=== PATIENT | male | born 1960 | race Caucasian/White ===

== ENCOUNTER 2024-01-28 16:59 | Emergency (ER) | payer MEDICARE, SELFPAY ==
[2024-01-28 17:15] VITALS: BP 159/99; PULSE 74; RESP 19; TEMP 36.9; O2SAT 99; BMI 40.6
--- NOTE | 2024-01-28 17:28 | EXP.UTC ---
Discharge Plan Disposition Patient Disposition: Home, Self-Care Condition: Good Prescriptions Prescriptions: New methylprednisolone 4 mg Tablets,Dose Pack 4 mg PO DIRECTED 6 Days Qty: 21 0RF Rx Instructions: Take 1 pack as directed for 6 days amoxicillin 875 mg tablet 875 mg PO Q12H Qty: 20 0RF benzonatate 100 mg capsule 100 mg PO TIDP PRN (Reason: Cough) Qty: 30 0RF No Action lisinopril 20 mg tablet 20 mg PO DAILY fluoxetine 40 mg capsule 40 mg PO DAILY Patient Comments: TAKE 1 CAPSULE BY MOUTH EVERY DAY simvastatin 40 mg tablet 40 mg PO DAILY Patient Comments: TAKE 1 TABLET BY MOUTH EVERY DAY furosemide 20 mg tablet 20 mg PO DAILY PRN (Reason: swelling ) Patient Comments: TAKE 1 TABLET BY MOUTH EVERY DAY NEEDED naproxen 500 mg tablet See Rx Instructions .ROUTE .COMPLEX Patient Comments: TAKE 1 TABLET BY MOUTH TWICE A DAY WITH MEALS NEEDED FOR PAIN Rx Instructions: TAKE 1 TABLET BY MOUTH TWICE A DAY WITH MEALS NEEDED FOR PAIN Referrals Follow up/Referrals: Provider,Referral, MD [Primary Care Provider] - See instructions Activity Restrictions/Add. Instructions Additional Instructions/Restrictions: Drink plenty of fluids. Take tylenol or ibuprofen for pain or fever. Take the medications as directed. Follow up with your regular doctor. GO TO THE ER FOR ANY WORSENING SYMPTOMS Clinical Impressions Clinical Impression: Acute bronchitis, Sinusitis Instructions Patient Instructions: DI for Sinusitis, DI for Acute Bronchitis Discharge ED Provider: Theo Shore [facility] – [place] HPI General Stated complaint: fatigue, chest congestion, sinus congestion Time Seen by Provider: 01/28/24 17:28 History of Present Illness Provider Complaint: He states that for the past 2 days he has had sinus and chest congestion. He has had a nonproductive cough also. Since yesterday he has had had worsening fatigue also. He denies any chest pain. Related Data Home Medications Medication Instructions Recorded Confirmed lisinopril 20 mg tablet 20 mg PO DAILY 03/26/20 01/28/24 fluoxetine 40 mg capsule 40 mg PO DAILY 01/28/24 01/28/24 furosemide 20 mg tablet 20 mg PO DAILY PRN swelling 01/28/24 01/28/24 naproxen 500 mg tablet See Rx Instructions .Route .COMPLEX 01/28/24 01/28/24 simvastatin 40 mg tablet 40 mg PO DAILY 01/28/24 01/28/24 Previous Rx's Medication Instructions Recorded amoxicillin 875 mg tablet 875 mg PO Q12H #20 tabs 01/28/24 benzonatate 100 mg capsule 100 mg PO TIDP PRN Cough #30 caps 01/28/24 methylprednisolone 4 mg tablets in 4 mg PO DIRECTED 6 days #21 tabs 01/28/24 a dose pack Allergies Allergy/AdvReac Type Severity Reaction Status Date / Time No Known Allergies Allergy Verified 01/28/24 17:36 [facility] Disclaimer: The information contained in this section may have been updated after the patient was seen, as this information can be updated by other users. Social History Smoking Status: Never smoker alcohol intake: never substance use type: denies use current occupational status: employed Travel in the last 8 weeks: None household members: family housing: house ROS Obtained: Yes All systems reviewed & no additional complaints except as documented Constitutional Constitutional: Reports poor appetite Eyes Eyes: Reports system reviewed and no additional complaints, except as documented ENT Ears, Nose, Mouth, and Throat: Reports as per HPI Cardiovascular Cardiovascular: Reports system reviewed and no additional complaints, except as documented and Denies chest pain Respiratory Respiratory: Denies shortness of breath, Denies chest congestion, Reports cough, Denies stridor and Denies wheezing Gastrointestinal Gastrointestingal: Reports system reviewed and no additional complaints, except as documented; Denies abdominal pain, diarrhea or vomiting Musculoskeletal Musculoskeletal: Reports system reviewed and no additional complaints, except as documented and Denies arthralgias Integumentary/Breasts Skin/Breast: Reports system reviewed and no additional complaints, except as documented and Denies rash Neurologic Neurologic: Denies paresthesias Allergic/Immunologic Allergic/Immunologic: Denies wheezing Physical Exam General General appearance: alert and in no apparent distress Eye Eye exam: Present normal appearance, PERRL and EOMI ENT ENT exam: Present mucous membranes moist and normal external ear exam Expanded ENT Exam External ear exam: Present normal external inspection TM/Canal exam: Bilateral TM: erythema and bulging Nose exam: Absent sinus tenderness Nasal speculum exam: Bilateral: normal Mouth exam: Present normal external inspection; Absent drooling Teeth exam: Present normal inspection Throat exam: Present tonsillar erythema and tonsillomegaly Neck Neck exam: Present normal inspection, full ROM and trachea midline; Absent tenderness, lymphadenopathy or thyromegaly Chest Chest inspection: Present normal inspection and symmetric chest wall rise; Absent tenderness or rash Respiratory Respiratory exam: Present normal lung sounds bilaterally; Absent respiratory distress, wheezes, stridor or accessory muscle use Cardiovascular Cardiovascular exam: Present regular rate, normal rhythm and normal heart sounds Abdominal Exam Abdominal exam: Present soft; Absent distention, tenderness, guarding, rebound or rigidity Extremities Exam Extremities exam: Present normal inspection, full ROM and normal capillary refill; Absent tenderness or calf tenderness Back Exam Back exam: Present normal inspection and full ROM; Absent tenderness Neurological Exam Neurological exam: Present alert and oriented X3 Psychiatric Psychiatric exam: Present normal affect and normal mood Skin Skin exam: Present warm, dry, intact and normal color Lymphatic Lymphatic Findings: no adenopathy Medical Decision Making Medical Records Medical records reviewed: No I reviewed the patient's medical records. Johan Inquiry Pt receiving controlled substance: No Radiology Data #1: Image(s): Chest Image Reviewed: Yes I reviewed the patient's radiology image and Yes I have reviewed radiologist's interpretation Preliminary Findings: No Infiltrates Seen Accession No. : [id number] Patient Name / ID : ANGIE ALFONSO / [id number] Exam Date : 01/28/2024 17:46:07 ( Final ) Study Comment : Sex / Age : M / [id number] Creator : GLYNN CESPEDES Dictator : Bobcat Driver/Labor : Mobile Paramedical Examiner : GLYNN CESPEDES Approver2 : Report Date : 01/28/2024 18:30:00 My Comment : PROCEDURE INFORMATION: Exam: XR Chest Exam date and time: 01/28/2024 5:46 PM Age: 64 years old Clinical indication: Cough and shortness of breath and other: Fatigue; Additional info: Cough, fatigue TECHNIQUE: Imaging protocol: Radiologic exam of the chest. Views: 2 views. COMPARISON: No relevant prior studies available. FINDINGS: Lungs: Lungs are clear. No pulmonary edema or consolidation. Pleural spaces: No pleural effusion. No pneumothorax. Heart/Mediastinum: Cardiomediastinal silhouette is normal. Bones/joints: No acute abnormality. IMPRESSION: No acute findings.
--- NOTE | 2024-01-28 17:51 | XR_ITS ---
PROCEDURE INFORMATION: Exam: XR Chest Exam date and time: 01/28/2024 5:46 PM Age: 64 years old Clinical indication: Cough and shortness of breath and other: Fatigue; Additional info: Cough, fatigue TECHNIQUE: Imaging protocol: Radiologic exam of the chest. Views: 2 views. COMPARISON: No relevant prior studies available. FINDINGS: Lungs: Lungs are clear. No pulmonary edema or consolidation. Pleural spaces: No pleural effusion. No pneumothorax. Heart/Mediastinum: Cardiomediastinal silhouette is normal. Bones/joints: No acute abnormality. IMPRESSION: No acute findings.
[2024-01-28 18:46] VITALS: BP 154/99; PULSE 74; RESP 18; TEMP 36.9; O2SAT 99
== END 2024-01-28 18:46 | disposition home or self-care (01) ==
PROVIDERS: Emergency Provider Nurse Practitioner Family
DX: J20.9 Acute bronchitis, unspecified (principal); J01.90 Acute sinusitis, unspecified; R05.9 Cough, unspecified; R09.81 Nasal congestion; R53.83 Other fatigue
CPT/HCPCS: 71046; 99204; 99212; G0463